=== PATIENT | male | born 1995 | race African-American/Black ===

== ENCOUNTER 2016-10-17 22:13 | Emergency (ER) | payer OTHER ==
[~2016-10-17] VITALS: Ht 182.9 cm; Wt 60.0 kg
[~2016-10-17 22:13] MED LIST: CEFI400C PO; DOXY100T PO
[2016-10-17 22:33] VITALS: BP 122/67; PULSE 66; RESP 16; TEMP 98; O2SAT 99
[2016-10-17] MEDS ORDERED: LORazepam 2 MG/ML VIAL IM ONE (22:45)
[2016-10-17] MEDS ORDERED: HALOPERIDOL LACTATE 5 MG/ML AMP IM ONE (22:45)
--- NOTE | 2016-10-17 22:48 | PD ---
HPI Chief Complaint: Psychiatric Symptoms Time Seen by Provider: 22:42 Travel History International Travel<30 days: No Contact w/Intl Traveler<30days: No Traveled to known affect area: No History of Present Illness HPI 21-year-old black male presents to emergency department under Gamez act by PD. The patient had contacted the corporate safety manager at [facility] and requested them to shoot him. The patient was also trying to run out traffic. The patient here is loud, verbally aggressive and confrontational. The patient here denies any suicidal ideation. He denies any homicidal ideation. He denies any current medical complaints. [facility] Past Medical History Narrative Medical History through review of the medical record. Patient initially denying all medical complaints. Hypertension: Yes Immunizations Current: Yes Seizures: Yes Tetanus Vaccination: < 5 Years Past Surgical History Other Surgery: Yes (ear surgery when ) Social History Alcohol Use: No (NEVER) Tobacco Use: No Substance Use: No Allergies-Medications (Allergen,Severity, Reaction): Coded Allergies: Abilify (Verified Allergy, Severe, Seizures, 10/17/16) Zyprexa (Verified Allergy, Severe, Seizures, 10/17/16) Reported Meds & Prescriptions Reported Meds & Active Scripts Active No Active Prescriptions or Reported Medications Review of Systems ROS Limitations: Uncooperative Except as stated in HPI: all other systems reviewed are Neg Physical Exam Narrative GENERAL: Well-nourished, well-developed patient. Aggressive demeanor, loud and obnoxious. Threatening to the staff. SKIN: Warm and dry. HEAD: Normocephalic and atraumatic. EYES: No scleral icterus. No injection or drainage. ENT: No nasal drainage noted. Mucous membranes pink. Airway patent. NECK: Supple, trachea midline. Moves head freely without obvious discomfort. CARDIOVASCULAR: Regular rate and rhythm without murmurs, gallops, or rubs. RESPIRATORY: Breath sounds equal bilaterally. No accessory muscle use. GASTROINTESTINAL: Abdomen soft, non-tender, nondistended. EXTREMITIES: No cyanosis or edema. BACK: Nontender without obvious deformity. No CVA tenderness. NEURO: Patient is alert and oriented. no sensorimotor deficits. Nonfocal. Normal speech. PSYCH: No delusions. No auditory or visual hallucinations. Data Data Last Documented VS Vital Signs Date Time Temp Pulse Resp B/P Pulse Ox O2 Delivery O2 Flow Rate FiO2 8/15/17 01:40 80 16 121/62 99 Room Air 10/17/16 22:33 98.0 Orders Complete Blood Count With Diff (10/17/16 22:36) Comprehensive Metabolic Panel (10/17/16 22:36) Psych Screen (10/17/16 22:36) Haloperidol Inj (Haldol Inj) (10/17/16 22:45) Lorazepam Inj (Ativan Inj) (10/17/16 22:45) Drug Screen, Random Urine (10/17/16 22:36) Alcohol (Ethanol) (10/17/16 22:36) Salicylates (Aspirin) (10/17/16 22:36) Tylenol (Acetaminophen) (10/17/16 22:36) Restraints Violent (10/17/16 23:11) Labs Laboratory Tests Test 10/17/16 23:26 White Blood Count 6.4 TH/MM3 Red Blood Count 4.89 MIL/MM3 Hemoglobin 14.6 GM/DL Hematocrit 43.1 % Mean Corpuscular Volume 88.3 FL Mean Corpuscular Hemoglobin 29.9 PG Mean Corpuscular Hemoglobin 33.9 % Concent Red Cell Distribution Width 14.0 % Platelet Count 197 TH/MM3 Mean Platelet Volume 8.3 FL Neutrophils (%) (Auto) 71.9 % Lymphocytes (%) (Auto) 15.7 % Monocytes (%) (Auto) 11.3 % Eosinophils (%) (Auto) 0.4 % Basophils (%) (Auto) 0.7 % Neutrophils # (Auto) 4.6 TH/MM3 Lymphocytes # (Auto) 1.0 TH/MM3 Monocytes # (Auto) 0.7 TH/MM3 Eosinophils # (Auto) 0.0 TH/MM3 Basophils # (Auto) 0.0 TH/MM3 CBC Comment DIFF FINAL Differential Comment Sodium Level 138 MEQ/L Potassium Level 3.5 MEQ/L Chloride Level 104 MEQ/L Carbon Dioxide Level 26.8 MEQ/L Anion Gap 7 MEQ/L Blood Urea Nitrogen 15 MG/DL Creatinine 1.07 MG/DL Estimat Glomerular Filtration 106 ML/MIN Rate Random Glucose 80 MG/DL Calcium Level 9.2 MG/DL Total Bilirubin 1.3 MG/DL Aspartate Amino Transf 22 U/L (AST/SGOT) Alanine Aminotransferase 16 U/L (ALT/SGPT) Alkaline Phosphatase 62 U/L Total Protein 7.7 GM/DL Albumin 4.9 GM/DL Salicylates Level LESS THAN 1.7 MG/DL Acetaminophen Level LESS THAN 2.0 MCG/ML Ethyl Alcohol Level LESS THAN 3 MG/DL MDM Medical Decision Making Medical Screen Exam Complete: Yes Emergency Medical Condition: Yes Medical Record Reviewed: Yes Interpretation(s) Laboratory Tests Test 10/17/16 23:26 White Blood Count 6.4 TH/MM3 Red Blood Count 4.89 MIL/MM3 Hemoglobin 14.6 GM/DL Hematocrit 43.1 % Mean Corpuscular Volume 88.3 FL Mean Corpuscular Hemoglobin 29.9 PG Mean Corpuscular Hemoglobin 33.9 % Concent Red Cell Distribution Width 14.0 % Platelet Count 197 TH/MM3 Mean Platelet Volume 8.3 FL Neutrophils (%) (Auto) 71.9 % Lymphocytes (%) (Auto) 15.7 % Monocytes (%) (Auto) 11.3 % Eosinophils (%) (Auto) 0.4 % Basophils (%) (Auto) 0.7 % Neutrophils # (Auto) 4.6 TH/MM3 Lymphocytes # (Auto) 1.0 TH/MM3 Monocytes # (Auto) 0.7 TH/MM3 Eosinophils # (Auto) 0.0 TH/MM3 Basophils # (Auto) 0.0 TH/MM3 CBC Comment DIFF FINAL Differential Comment Sodium Level 138 MEQ/L Potassium Level 3.5 MEQ/L Chloride Level 104 MEQ/L Carbon Dioxide Level 26.8 MEQ/L Anion Gap 7 MEQ/L Blood Urea Nitrogen 15 MG/DL Creatinine 1.07 MG/DL Estimat Glomerular Filtration 106 ML/MIN Rate Random Glucose 80 MG/DL Calcium Level 9.2 MG/DL Total Bilirubin 1.3 MG/DL Aspartate Amino Transf 22 U/L (AST/SGOT) Alanine Aminotransferase 16 U/L (ALT/SGPT) Alkaline Phosphatase 62 U/L Total Protein 7.7 GM/DL Albumin 4.9 GM/DL Salicylates Level LESS THAN 1.7 MG/DL Acetaminophen Level LESS THAN 2.0 MCG/ML Ethyl Alcohol Level LESS THAN 3 MG/DL Differential Diagnosis MDM: High Differential diagnoses: Schizophrenia, schizoaffective disorder, bipolar, anxiety, depression, adjustment reaction, mood disorder NOS, ODD, depressive disorder NOS, dementia, dementia with agitation, psychosis NOS, substance induced mood disorder, intermittent explosive disorder, Asperger syndrome, infection,electrolyte abnormality, malingering. Narrative Course Mental health screening discussed with the patient. Psychiatric screen ordered. Due to the patient's aggressive behavior and threatening demeanor he is medicated with Haldol 5 mg and Ativan 2 mg IM. The nursing staff has been advised that if a viral restrained needs to be ordered ferritin notify me immediately. The patient's behavior has escalated. There was concern for safety of the medical staff and the patient was placed in violent restraints. The patient has not become more cooperative. He is taken out of restraints per protocol. This is medical clearance for psychiatric admission, psychosis NOS Diagnosis Primary Impression: Medical clearance for psychiatric admission Additional Impression: Unspecified psychosis Scripts No Active Prescriptions or Reported Meds Condition: Stable Juve Dsouza Oct 17, 2016 22:48
[2016-10-17 23:45] LABS: AUTOMATED NEUTROPHIL # 4.6 TH/MM3 (1.8-7.7); BASOPHIL % 0.7 % (0.0-2.0); EOSINOPHIL % 0.4 % (0.0-4.0); HEMATOCRIT 43.1 % (39.0-51.0); HEMO FLAGS DIFF FINAL; LYMPH % 15.7 % (9.0-44.0); MEAN CELL VOLUME 88.3 FL (80.0-100.0); MEAN CORPUSCULAR HEMOGLOBIN 29.9 PG (27.0-34.0); MEAN CORPUSCULAR HGB CONC 33.9 % (32.0-36.0); MONO % 11.3 % (0.0-8.0); NEUT % 71.9 % (16.0-70.0); PLATELET COUNT 197 TH/MM3 (150-450); RED BLOOD COUNT 4.89 MIL/MM3 (4.50-5.90); WHITE BLOOD COUNT 6.4 TH/MM3 (4.0-11.0)
[2016-10-18 00:18] LABS: ANION GAP 7 MEQ/L (5-15); AST (GOT) 22 U/L (15-37); BICARBONATE 26.8 MEQ/L (21.0-32.0); BLOOD UREA NITROGEN 15 MG/DL (7-18); CHLORIDE 104 MEQ/L (98-107); GLOMERULAR FILTRATION RATE 106 ML/MIN (>89); POTASSIUM 3.5 MEQ/L (3.5-5.1); SODIUM (NA) 138 MEQ/L (136-145)
[2016-10-18 00:46] LABS: ALKALINE PHOSPHATASE 62 U/L (45-117); ALT (GPT) 16 U/L (12-78); TOTAL BILIRUBIN ADULT 1.3 MG/DL (0.2-1.0)
[2016-10-18 00:47] LABS: ACETAMINOPHEN LESS THAN 2.0 MCG/ML (10.0-30.0); ALCOHOL LESS THAN 3 MG/DL (0-5)
[2016-10-18 01:40] VITALS: BP 121/62; PULSE 80; RESP 16; O2SAT 99
[2016-10-18 02:18] VITALS: BP 112/57; PULSE 65; RESP 18
[2016-10-18 06:30] VITALS: RESP 18
[2016-10-18] MEDS ORDERED: ZIPRASIDONE MESYLATE 20 MG VIAL IM ONE ×2 (09:58→10:00)
[2016-10-18] MEDS ORDERED: diphenhydrAMINE HCL 50 MG/ML VIAL ONE (09:58)
[2016-10-18] MEDS ORDERED: diphenhydrAMINE HCL 50 MG/ML VIAL IM ONE (10:00)
[2016-10-18 10:24] VITALS: BP 143/75; PULSE 78; RESP 18; O2SAT 98
--- NOTE | 2016-10-18 15:58 | PD ---
History of Present Illness Chief Complaint: Psychiatric Symptoms Time Seen by Provider: 15:45 Travel History International Travel<30 Days: No Contact w/Intl Traveler<30days: No Known affected area: No Legal Status Legal Status: Gamez Act Gamez Act Signed By: Tim Gamez Act Comment: OFFICER Any VALLADARES History of Present Illness: 21-year-old male presented this morning under a Gamez act in a highly agitated and irrational state asking law enforcement officers to kill him and running in and out of traffic. Patient was apparently positive for marijuana which may have been laced with some other drug that is not found her toxicology screen. This morning when seen by this physician he was highly agitated and irrational. This afternoon, he is markedly improved, calm, pleasant, cooperative, completely oriented with intact cognition. He denies any suicidal or homicidal ideation, plan or intent. No psychotic symptoms. PFSH Past Medical History Medical History: Denies Significant Hx Hypertension: Yes Immunizations Current: Yes Seizures: Yes Tetanus Vaccination: < 5 Years Past Surgical History Other Surgery: Yes (ear surgery when ) Psychiatric History Psychiatric History Hx Psychiatric Treatment: MULTIPLE VISITS FOR SUBSTANCE ABUSE History of Inpatient Treatment: No Guns or firearms in home: No Social History Hx Alcohol Use: No (NEVER) Hx Tobacco Use: No Hx Substance Use: No Substance Use Type: Marijuana Other Substances Used: PT. HX CANNIBOIDS Hx of Substance Use Treatment: No Allergies-Medications (Allergen,Severity, Reaction): Coded Allergies: aripiprazole (Unverified Allergy, Severe, Seizures, 10/18/16) olanzapine (Unverified Allergy, Severe, Seizures, 10/18/16) Reported Meds & Prescriptions Reported Meds & Active Scripts Active No Active Prescriptions or Reported Medications Review of Systems Except as stated in HPI: all other systems reviewed are Neg Exam Alert: Yes [place]: Person, Place, Date, Situation Mood: Calm Affect: Appropriate, Euthymic Speech: Clear, Logical Eye Contact: Normal Memory Intact: Immediate, Recent, Remote Insight/Judgement Adequate MDM Medical Decision Making Medical Record Reviewed: Yes Assessment/Plan Patient's medical record was reviewed and this physician spoke with the patient' s nurse repeatedly throughout the day and examined the patient on multiple occasions. At the time of discharge, the patient did not meet [facility] criteria and did not meet criteria for inpatient psychiatric hospitalization. Patient was encouraged to seek outpatient or inpatient care at [facility] for substance abuse. He was verbally eugenio for safety at the time of his discharge. Orders Complete Blood Count With Diff (10/17/16 22:36) Comprehensive Metabolic Panel (10/17/16 22:36) Psych Screen (10/17/16 22:36) Haloperidol Inj (Haldol Inj) (10/17/16 22:45) Lorazepam Inj (Ativan Inj) (10/17/16 22:45) Drug Screen, Random Urine (10/17/16 22:36) Alcohol (Ethanol) (10/17/16 22:36) Salicylates (Aspirin) (10/17/16 22:36) Tylenol (Acetaminophen) (10/17/16 22:36) Restraints Violent (10/17/16 23:11) Diet Regular Basic (10/18/16 Breakfast) Restraints Violent (10/18/16 09:57) Diphenhydramine Inj (Benadryl Inj) (10/18/16 09:58) Ziprasidone Inj (Geodon Inj) (10/18/16 10:00) Diphenhydramine Inj (Benadryl Inj) (10/18/16 10:00) Ziprasidone Inj (Geodon Inj) (10/18/16 09:58) Diet Regular Basic (10/18/16 Lunch) Diet Regular Basic (10/18/16 Dinner) Results Vital Signs Date Time Temp Pulse Resp B/P Pulse Ox O2 Delivery O2 Flow Rate FiO2 10/18/16 10:24 78 18 143/75 98 Room Air 10/18/16 06:30 18 10/18/16 02:18 65 18 112/57 Room Air 10/18/16 01:40 80 16 121/62 99 Room Air 10/17/16 22:33 98.0 66 16 122/67 99 Room Air Laboratory Tests Test 10/17/16 10/18/16 23:26 11:35 White Blood Count 6.4 Red Blood Count 4.89 Hemoglobin 14.6 Hematocrit 43.1 Mean Corpuscular Volume 88.3 Mean Corpuscular Hemoglobin 29.9 Mean Corpuscular Hemoglobin 33.9 Concent Red Cell Distribution Width 14.0 Platelet Count 197 Mean Platelet Volume 8.3 Neutrophils (%) (Auto) 71.9 Lymphocytes (%) (Auto) 15.7 Monocytes (%) (Auto) 11.3 Eosinophils (%) (Auto) 0.4 Basophils (%) (Auto) 0.7 Neutrophils # (Auto) 4.6 Lymphocytes # (Auto) 1.0 Monocytes # (Auto) 0.7 Eosinophils # (Auto) 0.0 Basophils # (Auto) 0.0 CBC Comment DIFF FINAL Differential Comment Sodium Level 138 Potassium Level 3.5 Chloride Level 104 Carbon Dioxide Level 26.8 Anion Gap 7 Blood Urea Nitrogen 15 Creatinine 1.07 Estimat Glomerular Filtration 106 Rate Random Glucose 80 Calcium Level 9.2 Total Bilirubin 1.3 Aspartate Amino Transf 22 (AST/SGOT) Alanine Aminotransferase 16 (ALT/SGPT) Alkaline Phosphatase 62 Total Protein 7.7 Albumin 4.9 Salicylates Level LESS THAN 1.7 Acetaminophen Level LESS THAN 2.0 Ethyl Alcohol Level LESS THAN 3 Urine Opiates Screen NEG Urine Barbiturates Screen NEG Urine Amphetamines Screen NEG Urine Benzodiazepines Screen NEG Urine Cocaine Screen NEG Urine Cannabinoids Screen POS Diagnosis Primary Impression: Marijuana abuse Departure Forms: Tests/Procedures Patient Instructions: General Instructions, Cannabis Abuse (ED) Additional Instructions: DISCHARGE HOME DIAGNOSIS CANNIBOID ABUSE RETURN TO ED FOR WORSENING PROBLEMS Prescriptions No Active Prescriptions or Reported Meds Disposition: 01 DISCHARGE HOME Condition: Stable Mike Barber MD Oct 18, 2016 15:58
[2016-10-18 16:35] VITALS: BP 143/75
== END 2016-10-18 16:30 | disposition home or self-care (01) ==
LOC: NEPD 22:13 → NEPJ 10-18 16:30
DX: Z02.89 Encounter for other administrative examinations (principal); F29 Unspecified psychosis not due to a substance or known physiological condition; F12.10 Cannabis abuse, uncomplicated; I10 Essential (primary) hypertension; Z86.69 Personal history of other diseases of the nervous system and sense organs
CPT/HCPCS: 80053; 80307; 85025; 96372; 99285; J1200; J1630; J2060; J3486

== ENCOUNTER 2016-10-19 00:55 | Emergency (ER) | payer OTHER ==
[~2016-10-19] VITALS: Ht 180.3 cm; Wt 73.0 kg
[2016-10-19 00:59] VITALS: BP 140/61; PULSE 76; RESP 20; O2SAT 98
--- NOTE | 2016-10-19 01:28 | PD ---
HPI Chief Complaint: Allergic/Adverse Reaction Time Seen by Provider: 01:01 Travel History International Travel<30 days: No Contact w/Intl Traveler<30days: No Traveled to known affect area: No History of Present Illness HPI The patient is a 21 year old male who presents to the [facility] emergency department with a history of reportedly having difficulty controlling his tongue with abnormal tongue movements that began approximately 40 minutes prior to arrival. He is concerned that it may be related to an allergic reaction to medications that he received yesterday. The patient was in the emergency department yesterday under a Gamez act. According to the record he received Geodon and Benadryl. The patient had his Gamez act later released by the psychiatrist. The patient denies having any rash or skin itching. He denies having any chest pain, chest pressure, or shortness of breath. He denies having any abdominal pain, nausea, vomiting, or diarrhea. He denies having any tongue or throat swelling. Otherwise on review of systems, he denies any recent fevers, cough, congestion, neck pain, urinary symptoms, or neurologic symptoms. [facility] Past Medical History Narrative Medical The patient's past medical history is significant for anxiety disorder. Hypertension: Yes Immunizations Current: Yes Seizures: Yes Past Surgical History Narrative Surgical The patient's past surgical history is reportedly none. Other Surgery: Yes (ear surgery when infant) Social History Alcohol Use: No (NEVER) Tobacco Use: No Substance Use: No Allergies-Medications (Allergen,Severity, Reaction): Coded Allergies: aripiprazole (Unverified Allergy, Severe, Seizures, 10/18/16) olanzapine (Unverified Allergy, Severe, Seizures, 10/18/16) Reported Meds & Prescriptions Reported Meds & Active Scripts Active No Active Prescriptions or Reported Medications Review of Systems Except as stated in HPI: all other systems reviewed are Neg General / Constitutional: No: Fever Eyes: No: Visual changes HENT: Positive: Other (abnormal movements of his tongue), No: Headaches Cardiovascular: No: Chest Pain or Discomfort Respiratory: No: Shortness of Breath Gastrointestinal: No: Abdominal Pain Genitourinary: No: Dysuria Musculoskeletal: No: Pain Skin: No Rash Neurologic: No: Weakness, Focal Abnormalities, Change in Mentation, Slurred Speech, Sensory Disturbance Psychiatric: No: Depression, Suicidal Ideations, Homicidal Ideation Endocrine: No: Polydipsia Hematologic/Lymphatic: No: Easy Bruising Physical Exam Narrative General: The patient is a well-developed well-nourished male in no acute distress. The patient is easily able to talk. Head and Neck exam: Head is normocephalic atraumatic. Eyes: EOMI, pupils are equal round and reactive to light. Nose: Midline septum with pink mucous membranes Mouth: The patient has no tongue swelling noted. The patient is intermittently sticking his tongue out of his mouth. Dentition unremarkable. Moist mucus membranes. Posterior oropharynx is not erythematous. No tonsillar hypertrophy. Uvula midline. Airway patent. Neck: No palpable lymphadenopathy. No nuchal rigidity. No thyromegaly. Cardiovascular: Regular rate and rhythm without murmurs, gallops, or rubs. Lungs: Clear to auscultation bilaterally. No wheezes, rhonchi, or rales. Abdomen: Soft, without tenderness to palpation in all 4 quadrants of the abdomen. No guarding, rebound, or rigidity. Normal bowel sounds are audible. No tenderness on palpation of McBurney's point. Extremities: No clubbing, cyanosis, or edema. 2+ pulses in all 4 extremities. No calf tenderness on palpation. Neurologic Exam: Grossly nonfocal. Skin Exam: No rash noted. Intact skin that is warm and dry. Data Data Last Documented VS Vital Signs Date Time Temp Pulse Resp B/P Pulse Ox O2 Delivery O2 Flow Rate FiO2 10/19/16 00:59 76 20 140/61 98 Orders Iv Access Insert/Monitor (10/19/16 01:02) Ecg Monitoring (10/19/16 01:02) Oximetry (10/19/16 01:02) Complete Blood Count With Diff (10/19/16 01:15) Basic Metabolic Panel (Bmp) (10/19/16 01:15) Methylprednisolone So Succ Inj (Solumedr (10/19/16 01:30) Famotidine Inj (Pepcid Inj) (10/19/16 01:30) Benztropine Inj (Cogentin Inj) (10/19/16 01:30) MDM Medical Decision Making Medical Screen Exam Complete: Yes Emergency Medical Condition: Yes Medical Record Reviewed: Yes Differential Diagnosis Dystonic movements, versus allergic reaction, versus psychiatric disorder Narrative Course During the course of the patients emergency department visit, the patients history, examination, and differential diagnosis were reviewed with the patient. The patient had IV access written to be obtained. The patient refused IV access and blood work being drawn. The patient reports that he needs to get to a class. The patient is being evaluated at approximately 1:30 AM. I spoke to the patient again regarding the need for IV access to administer medications for his symptoms, however the patient refuses. The patient has decided to leave AGAINST MEDICAL ADVICE prior to the completion of his workup. AMA: The risks of leaving against medical advice without further evaluation treatment were discussed with the patient. These risks include cardiac dysfunction, cardiac dysrhythmia, possible heart attack, possible stroke or . The patient indicated understanding of these risks and appeared to have the capacity to make this decision. Diagnosis Primary Impression: Abnormal rhythmic movement of tongue Referrals: Primary Care Physician Psychiatrist 3 days Patient Instructions: General Instructions Scripts No Active Prescriptions or Reported Meds Disposition: 07 AGAINST MEDICAL ADVICE Condition: Stable Chayito Bales MD Oct 19, 2016 01:27
[2016-10-19] MEDS ORDERED: methylPREDNISolone SOD SUCC 125 MG/2 ML VIAL IV PUSH ONE (01:30)
[2016-10-19] MEDS ORDERED: BENZTROPINE MESYLATE 2 MG/2 ML VIAL IV PUSH ONE (01:30)
[2016-10-19] MEDS ORDERED: FAMOTIDINE INJ 20 MG in SODIUM CHLORIDE 0.9% INJ 98 ML IV SCH (01:30)
== END 2016-10-19 02:00 | disposition left against medical advice (07) ==
LOC: NEPE 00:55
DX: K14.8 Other diseases of tongue (principal); I10 Essential (primary) hypertension
CPT/HCPCS: 99281

== ENCOUNTER 2016-10-19 05:41 | Emergency (ER) | payer OTHER ==
[~2016-10-19] VITALS: Ht 180.3 cm; Wt 73.0 kg
[2016-10-19 05:48] VITALS: BP 143/86; PULSE 72; RESP 16; TEMP 98.1; O2SAT 98
== END 2016-10-19 07:34 | disposition left against medical advice (07) ==
LOC: NED 05:41
DX: Z02.89 Encounter for other administrative examinations (principal)
CPT/HCPCS: 99281

== ENCOUNTER 2016-10-19 08:23 | Emergency (ER) | payer OTHER | END 2016-10-19 08:29 | disposition left against medical advice (07) | LOC: NED 08:23 | DX: Z02.89 Encounter for other administrative examinations (principal) | CPT/HCPCS: 99281 ==